=== PATIENT | male | born 1995 | race Caucasian/White ===

== ENCOUNTER 2017-01-11 20:56 | Emergency (ER) | payer OTHER ==
[~2017-01-11] VITALS: Ht 165.1 cm; Wt 65.0 kg
[2017-01-11 21:00] VITALS: BP 122/94
== END 2017-01-11 22:30 | disposition home or self-care (01) ==
LOC: ER 22:24
DX: Z02.89 Encounter for other administrative examinations (principal); M79.632 Pain in left forearm; T75.4XXA Electrocution, initial encounter; Y35.891A Legal intervention involving other specified means, law enforcement official injured, initial encounter; Y93.89 Activity, other specified; Y92.89 Other specified places as the place of occurrence of the external cause; R03.0 Elevated blood-pressure reading, without diagnosis of hypertension; F12.90 Cannabis use, unspecified, uncomplicated
CPT/HCPCS: 99283